=== PATIENT | male | born 1955 | race Caucasian/White ===

== ENCOUNTER 2023-10-14 13:37 | Outpatient (CLI) | payer OTHER, SELFPAY | END 2023-10-14 13:38 | disposition home or self-care (01) | PROVIDERS: Visit Provider Family Medicine | DX: M54.16 Radiculopathy, lumbar region (principal) | CPT/HCPCS: 64483; J1100; Q9966 ==

== ENCOUNTER 2024-08-10 08:46 | Outpatient (CLI) | payer OTHER, SELFPAY | END 2024-08-10 08:47 | disposition home or self-care (01) | LOC: INJ CL 08:46 | PROVIDERS: PCP Physician Assistant; Visit Provider Family Medicine | DX: M54.16 Radiculopathy, lumbar region (principal); M51.369 Other intervertebral disc degeneration, lumbar region without mention of lumbar back pain or lower extremity pain | CPT/HCPCS: 64483; J1100; Q9966 ==